=== PATIENT | female | born 2000 | race Hispanic/Latino ===

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

== ENCOUNTER → 2025-01-16 | Outpatient (REF) ==
[~2025-01-16] MED LIST: CEPHALEXIN500 MG PO
== END ==
LOC: RAD 08:25
DX: R76.12 Nonspecific reaction to cell mediated immunity measurement of gamma interferon antigen response without active tuberculosis (principal)
CPT/HCPCS: 71046